=== PATIENT | male | born 1970 | race Caucasian/White ===

== ENCOUNTER → 2021-04-05 02:57 | Outpatient (CLI) | payer OTHER, SELFPAY ==
[2021-04-05 20:04] LABS: SARS-CoV-2 RNA PCR Positive
== END ==
PROVIDERS: PCP Nurse Practitioner Family; Visit Provider Internal Medicine Gastroenterology
DX: U07.1 COVID-19 (principal); Z01.812 Encounter for preprocedural laboratory examination
CPT/HCPCS: C9803; U0003; U0005

== ENCOUNTER 2021-05-10 01:19 | Day surgery (SDC) | payer OTHER, SELFPAY ==
[2021-03-23 14:35] VITALS: BMI 29.0
[2021-04-22 09:56] VITALS: BMI 29.0
[2021-05-10 06:57] VITALS: BP 136/87; PULSE 87; RESP 16; TEMP 36.3; O2SAT 99
[2021-05-10] MEDS: LACTATED RINGERS 1,000 ML 150 ML IV CONT (06:59)
--- NOTE | 2021-05-10 07:33 | WPDANESEPPF ---
Anes - Initial Pre Proc Eval Procedure: Operation Date: 05/10/21 08:00 Proposed Procedures p Esophagogastroduodenoscopy - Horacio Birch MD Date/Time: 05/10/21 07:33 Surgeon: Horacio Birch MD Pre Op Diagnosis: GERD, anemia Patient Data Age: 50 Gender: F Height: 1.68 m Weight: 81.9 kg Last Vital Signs Temp 97.3 F L 05/10/21 06:57 Pulse 87 05/10/21 06:57 Resp 16 05/10/21 06:57 BP 136/87 05/10/21 06:57 Pulse Ox 99 05/10/21 06:57 Allergies Allergy/AdvReac Type Severity Reaction Status Date / Time erythromycin base AdvReac Mild nausea, Verified 05/10/21 06:55 [From E-Mycin] vomiting and diarrhea Sulfa (Sulfonamide AdvReac Mild Diarrhea, Verified 05/10/21 06:55 Antibiotics) nausea and vomiting Home Medications Medication Instructions Recorded Confirmed Type bupropion HCl 150 mg tablet,12 hr 300 mg PO DAILY 01/25/21 05/10/21 History sustained-release metoprolol succinate 25 mg 25 mg PO DAILY 01/25/21 05/10/21 History tablet,extended release 24 hr Bacillus coagulans 250 million 25,000,000 cell PO DAILY 03/16/21 05/10/21 History cell chewable tablet cholecalciferol (vitamin D3) 625 625 mcg PO ONCE cap 03/16/21 05/10/21 History mcg (25,000 unit) capsule inulin-chromium picolinate 2 1 tablet PO DAILY 03/16/21 05/10/21 History gram-100 mcg chewable tablet pantoprazole 20 mg tablet,delayed 20 mg PO BID tablet 03/16/21 05/10/21 History release sertraline 50 mg PO DAILY 04/22/21 05/10/21 History Patient hx anesthesia problems: none Family hx anesthesia problems: none Results Review: All pre-operative results and documents have been reviewed as part of the pre-operative evaluation. [facility] Past Medical History Medical History Anemia GERD (gastroesophageal reflux disease) Irritable bowel syndrome with diarrhea Tobacco abuse Social History Social History Years smoked: 3 Smoking status: Current every day smoker Tobacco type: e-cigarettes/vaping Alcohol intake: never Substance use: never Substance use type: does not use Living arrangements: with family Spiritual care concerns: No Anes - Eval Final PreProcedure Day of Procedure 05/10/21 07:33 Patient weight: overweight Heart: regular rate and rhythm Lungs: clear to auscultation Airway: Mallampati scale class II Neurological: alert and oriented Last oral intake: >/= 8 hours ASA classification: II Emergent: no Anesthetic plan: proceed Anesthesia type and monitoring: general GIVS and standard monitoring Results Review: All pre-operative results and documents have been reviewed as part of the pre-operative evaluation. Informed Consent: The patient's anesthetic plan and its attendant risks and benefits were discussed with the patient/family/POA. Questions were solicited and answers provided to the satisfaction of the patient/family/POA.
--- NOTE | 2021-05-10 07:59 | PM.HPGS ---
History of Present Illness History of Present Illness Consent: Risks, benefits, and alternatives have been discussed and questions answered. Patient agrees to proceed with procedure. Chief complaint: GERD, anemia Narrative: Valarie Bullock is a 50 year old female with gerd for several years on protonix, also ibs-d (had colonoscopy 2019), serology for celiac was negative. Never had EGD Review of Systems Constitutional: Constitutional: Denies headache(s) and Denies weakness Eyes: Eyes: Denies blurry vision ENT: Reports Normal hearing present, Denies headache(s) and Denies neck pain Cardiovascular: Cardiovascular: Denies chest pain and Denies dyspnea Respiratory: Respiratory: Denies dyspnea Gastrointestinal: Gastrointestinal: Reports no additional gastrointestinal complaints Genitourinary: Genitourinary: Denies dysuria Musculoskeletal: Musculoskeletal: Denies neck pain Integumentary/Breasts: Skin/Breast: Denies dry skin Neurologic: Reports Normal hearing present, Denies headache(s) and Denies weakness Psychiatric: Psychiatric: Denies anxiety Endocrine: Endocrine: Denies change in body appearance Hematologic/Lymphatic: Hematologic/Lymphatic: Denies easy bleeding Allergic/Immunologic: Allergic/Immunologic: Denies urticaria PMFSH Past Medical History Medical History Anemia GERD (gastroesophageal reflux disease) Irritable bowel syndrome with diarrhea Tobacco abuse Social History Social History Years smoked: 3 Smoking status: Current every day smoker Tobacco type: e-cigarettes/vaping Alcohol intake: never Substance use: never Substance use type: does not use Living arrangements: with family Spiritual care concerns: No Meds Home Medications and Allergies Home Medications Medication Instructions Recorded Confirmed Type bupropion HCl 150 mg tablet,12 hr 300 mg PO DAILY 01/25/21 05/10/21 History sustained-release metoprolol succinate 25 mg 25 mg PO DAILY 01/25/21 05/10/21 History tablet,extended release 24 hr Bacillus coagulans 250 million 25,000,000 cell PO DAILY 03/16/21 05/10/21 History cell chewable tablet cholecalciferol (vitamin D3) 625 625 mcg PO ONCE cap 03/16/21 05/10/21 History mcg (25,000 unit) capsule inulin-chromium picolinate 2 1 tablet PO DAILY 03/16/21 05/10/21 History gram-100 mcg chewable tablet pantoprazole 20 mg tablet,delayed 20 mg PO BID tablet 03/16/21 05/10/21 History release sertraline 50 mg PO DAILY 04/22/21 05/10/21 History Allergies Allergy/AdvReac Type Severity Reaction Status Date / Time erythromycin base AdvReac Mild nausea, Verified 05/10/21 06:55 [From E-Mycin] vomiting and diarrhea Sulfa (Sulfonamide AdvReac Mild Diarrhea, Verified 05/10/21 06:55 Antibiotics) nausea and vomiting Vital Signs Vital Signs - 24 hr 05/10/21 06:57 Temperature 97.3 F L Pulse Rate 87 Respiratory Rate 16 Blood Pressure 136/87 Pulse Oximetry 99 Exam Const: General: comfortable and no acute distress HENMT: General nose exam: Normal nares present Eyes: General: appearance normal, both eyes and all related structures Neck: Neck: no JVD Resp: Auscultation: clear to auscultation bilaterally Cardio: Rate: regular rate Rhythm: regular rhythm GI: Inspection: non-distended GI Palp: Yes Soft to palpation Skin: General skin exam: normal color Neuro: General: gait normal Speech: normal speech Extrem: General: normal to inspection Psych: Mental Status: mental status grossly normal Assessment and Plan Assessment and plan (1) GERD (gastroesophageal reflux disease): Code(s): K21.9 - Gastro-esophageal reflux disease without esophagitis Status: Acute Assessment and Plan: egd with bx, already on ppi (2) Irritable bowel syndrome with diarrhea: Code(s): K58.0 -
[2021-05-10] MEDS: BENZOCAINE (*SP) 60 ML SPRAY CAN (HURRICAINE) 1 SPRAY MUCOUS MEM (08:06)
[2021-05-10 08:16] VITALS: BP 115/78; PULSE 87; RESP 16; O2SAT 99
[2021-05-10 08:26] VITALS: BP 117/79; PULSE 82; RESP 18; O2SAT 99
[2021-05-10 08:36] VITALS: BP 118/81; PULSE 76; RESP 18; O2SAT 99
== END 2021-05-10 08:58 | disposition home or self-care (01) ==
PROVIDERS: PCP Nurse Practitioner Family; Visit Provider Internal Medicine Gastroenterology
PROC: 0DJ08ZZ Inspection of Upper Intestinal Tract, Via Natural or Artificial Opening Endoscopic (ICD-10-PCS; CPT 43235; principal; 2021-05-10 08:00)
DX: K21.9 Gastro-esophageal reflux disease without esophagitis (principal); K58.0 Irritable bowel syndrome with diarrhea; D64.9 Anemia, unspecified; F17.290 Nicotine dependence, other tobacco product, uncomplicated; Z79.4 Long term (current) use of insulin
CPT/HCPCS: 43239; 88305; J2704; J7120

== ENCOUNTER 2021-10-20 10:53 | Outpatient (CLI) | payer OTHER, SELFPAY ==
[2021-10-25 15:12] LABS: Fecal Fat, Ql Normal (Normal)
== END 2021-10-20 10:54 | disposition home or self-care (01) ==
LOC: ANHLAB 10:54
PROVIDERS: PCP Nurse Practitioner Family; Visit Provider Nurse Practitioner Family
DX: K58.0 Irritable bowel syndrome with diarrhea (principal)
CPT/HCPCS: 82705

== ENCOUNTER 2021-12-12 00:19 | Day surgery (SDC) | payer OTHER, SELFPAY ==
[2021-11-24 13:39] VITALS: BMI 27.7
[2021-12-12 11:55] VITALS: BP 124/47; PULSE 95; RESP 18; O2SAT 98
[2021-12-12 11:59] VITALS: BP 130/71; PULSE 95; RESP 18; O2SAT 99
--- NOTE | 2021-12-12 12:27 | PM.HPGS ---
History of Present Illness History of Present Illness Consent: Risks, benefits, and alternatives have been discussed and questions answered. Patient agrees to proceed with procedure. Chief complaint: hemorrhoids Narrative: Valarie Bullock is a 51 year old female with hemorrhoids and remote history of hemorrhoidectomy, lately with discomfort again Review of Systems Constitutional: Constitutional: Denies headache(s) and Denies weakness Eyes: Eyes: Denies blurry vision ENT: Reports Normal hearing present, Denies headache(s) and Denies neck pain Cardiovascular: Cardiovascular: Denies chest pain and Denies dyspnea Respiratory: Respiratory: Denies dyspnea Gastrointestinal: Gastrointestinal: Reports no additional gastrointestinal complaints Genitourinary: Genitourinary: Denies dysuria Musculoskeletal: Musculoskeletal: Denies neck pain Integumentary/Breasts: Skin/Breast: Denies dry skin Neurologic: Reports Normal hearing present, Denies headache(s) and Denies weakness Psychiatric: Psychiatric: Denies anxiety Endocrine: Endocrine: Denies change in body appearance Hematologic/Lymphatic: Hematologic/Lymphatic: Denies easy bleeding Allergic/Immunologic: Allergic/Immunologic: Denies urticaria PMF Past Medical History Medical History (Updated 12/12/21 @ 12:28 by Horacio Birch MD) Anemia Exocrine pancreatic insufficiency GERD (gastroesophageal reflux disease) Hemorrhoid Iron deficiency Irritable bowel syndrome with diarrhea Tobacco abuse Social History Social History Smoking packs per day: 1.5 Smoking cigarettes per day: 30.0 Years smoked: 20 Smoking pack-years: 30.00 Smoking status: Former smoker Tobacco type: cigarettes Alcohol intake: current Alcohol use details: socially Substance use: never Substance use type: does not use Living arrangements: with family Spiritual care concerns: No Meds Home Medications and Allergies Home Medications Medication Instructions Recorded Confirmed Type bupropion HCl 150 mg tablet,12 hr 300 mg PO DAILY 01/25/21 11/24/21 History sustained-release (Wellbutrin SR) metoprolol succinate 25 mg 25 mg PO DAILY 01/25/21 11/24/21 History tablet,extended release 24 hr Bacillus coagulans 250 million 25,000,000 cell PO DAILY 03/16/21 11/24/21 History cell chewable tablet (Digestive Advantage Probiotic Gummy) cholecalciferol (vitamin D3) 625 625 mcg PO ONCE 03/16/21 11/24/21 History mcg (25,000 unit) capsule inulin-chromium picolinate 2 1 tablet PO DAILY 03/16/21 11/24/21 History gram-100 mcg chewable tablet (Fiber Gummies (with chromium)) pantoprazole 20 mg tablet,delayed 20 mg PO BID 03/16/21 11/24/21 History release sertraline 50 mg tablet 75 mg PO DAILY 10/25/21 11/24/21 History Allergies Allergy/AdvReac Type Severity Reaction Status Date / Time erythromycin base AdvReac Mild nausea, Verified 12/12/21 11:58 [From E-Mycin] vomiting and diarrhea Sulfa (Sulfonamide AdvReac Mild Diarrhea, Verified 12/12/21 11:58 Antibiotics) nausea and vomiting Vital Signs Vital Signs - 24 hr 12/12/21 11:59 12/12/21 11:55 Pulse Rate 95 95 Respiratory Rate 18 18 Blood Pressure 130/71 124/47 L Pulse Oximetry 99 98 Oxygen Delivery Room Air Room Air Exam Const: General: comfortable and no acute distress HENMT: General nose exam: Normal nares present Eyes: General: appearance normal, both eyes and all related structures Neck: Neck: no JVD Resp: Auscultation: clear to auscultation bilaterally Cardio: Rate: regular rate Rhythm: regular rhythm GI: Inspection: non-distended GI Palp: Yes Soft to palpation Skin: General skin exam: normal color Neuro: General: gait normal Speech: normal speech Extrem: General: normal to inspection Psych: Mental Status: mental status grossly normal Assessment and Plan
--- NOTE | 2021-12-12 12:28 | W.PM.PROC2 ---
Procedure Note - Detailed Date of Procedure 12/12/21 Pre-op Diagnosis hemorrhoids Post-op Diagnosis Same Procedure Performed IRC of internal hemorrhoids Surgeon Horacio Birch MD Description of Procedure rectal exam was done, no fissures, no lesions. Found internal hemorrhoid grade 2 at 3 o'clock position then introduced anoscope and advanced IRC probe, hemorrhoid treated at 1.5 seconds x5, no complications
== END 2021-12-12 12:04 | disposition home or self-care (01) ==
PROVIDERS: PCP Nurse Practitioner Family; Visit Provider Internal Medicine Gastroenterology
PROC: (CPT 46930; principal; 2021-12-12 12:30)
DX: K64.8 Other hemorrhoids (principal); D64.9 Anemia, unspecified; F41.9 Anxiety disorder, unspecified; K21.9 Gastro-esophageal reflux disease without esophagitis; K58.0 Irritable bowel syndrome with diarrhea; Z87.891 Personal history of nicotine dependence; E61.1 Iron deficiency
CPT/HCPCS: 46930